=== PATIENT | male | born 1960 | race Caucasian/White ===

== ENCOUNTER 2016-09-12 13:53 | Emergency (ER) | payer MEDICARE ==
[~2016-09-12] VITALS: Ht 172.7 cm; Wt 93.0 kg
[2016-09-12] MEDS ORDERED: PROPARACAINE HCL 0.5% 15 ML OPHTHALMIC SOLUTION OD ONE (16:45)
[2016-09-12] MEDS ORDERED: PILOCARPINE HCL 1% 15 ML OPHTHALMIC SOLUTION OD ONE (20:45)
[2016-09-12] MEDS ORDERED: BRIMONIDINE/TIMOLOL 0.2-0.5% 5 ML OPHTHALMIC SOLUTION OD ONE (20:45)
[2016-09-12] MEDS ORDERED: BIMATOPROST 0.01% 2.5 ML OPHTHALMIC SOLUTION OD ONE (20:45)
[2016-09-12] MEDS ORDERED: AcetaZOLAMIDE 250 MG TABLET PO ONE (20:45)
[2016-09-12 21:42] VITALS: BP 127/80
== END 2016-09-12 22:54 | disposition short-term general hospital (02) ==
LOC: EMS 13:56
DX: H40.9 Unspecified glaucoma (principal)
CPT/HCPCS: 70450; 99285